=== PATIENT | female | born 1950 | race Caucasian/White ===

== ENCOUNTER → 2018-01-27 | Outpatient (CLI) | payer MEDICARE ==
[~2018-01-27] MED LIST: ATOR20TA9 PO; EMTR1TAB8 PO; EZET10TA18 PO; LEVO100T5 PO; LISI5TAB7 PO; METO25TA35 PO; PANT40TA5 PO; RALT400T PO
[2018-01-27 12:54] LABS: BASOPHILS # (AUTO) 0.06 x10^3/uL (0-0.1); BASOPHILS % (AUTO) 1 % (0-1); EOSINOPHILS # (AUTO) 0.19 x10^3/uL (0-0.4); EOSINOPHILS % (AUTO) 3 % (1-7); LYMPHOCYTES # (AUTO) 2.47 x10^3/uL (1-3.4); LYMPHOCYTES % (AUTO) 33 % (22-44); MD NO; MEAN CORPUSCULAR HEMOGLOBIN 29.7 pg (27.0-34.8); MEAN CORPUSCULAR HGB CONC 33.8 g/dL (32.4-35.8); MEAN CORPUSCULAR VOLUME 87.8 fL (80-100); MEAN PLATELET VOLUME 9.2 fL (7.4-10.4); MONOCYTES % (AUTO) 8 % (2-9); NEUTROPHILS # (AUTO) 4.28 x10^3/uL (1.8-6.8); NEUTROPHILS % (AUTO) 56 % (42-75); PLATELET COUNT 249 x10^3/uL (130-400); RED BLOOD COUNT 5.34 x10^6/uL (3.82-5.3); RED CELL DISTRIBUTION WIDTH 17.6 % (9.6-15.2)
[2018-01-27 13:03] LABS: ALBUMIN 3.9 g/dL (3.4-5.0); ANION GAP 7 mmol/L (5-15); CALCIUM 9.7 mg/dL (8.5-10.1); CHLORIDE 109 mmol/L (98-107)
[2018-01-27 13:07] LABS: ALANINE AMINOTRANSFERASE 58 U/L (12-78); ALKALINE PHOSPHATASE 126 U/L (45-117); BILIRUBIN,TOTAL 0.9 mg/dL (0.2-1.0); CREATININE 0.95 mg/dL (0.55-1.02); TOTAL PROTEIN 7.7 g/dL (6.4-8.2)
== END | disposition home or self-care (01) ==
LOC: STAR 11:38
PROVIDERS: ATTEND Surgery
DX: Z01.818 Encounter for other preprocedural examination (principal); R94.31 Abnormal electrocardiogram [ECG] [EKG]
CPT/HCPCS: 36415; 80053; 85025; 93005

== ENCOUNTER 2018-02-05 08:17 | Day surgery (SDC) | payer MEDICARE ==
[~2018-02-05] VITALS: Ht 142.2 cm; Wt 50.2 kg
[~2018-02-05 08:17] MED LIST changes: +BUPIVACAINE/PF 0.5% ONE
[2018-02-05] MEDS ORDERED: LACTATED RINGERS 1,000 ML IV SCH (08:46)
[2018-02-05 08:50] VITALS: BP 169/88
[2018-02-05] MEDS ORDERED: MIDAZOLAM 1 MG/ML, 2ML ONE (09:24)
[2018-02-05] MEDS ORDERED: FENTANYL PF 250 MCG/5ML ONE (09:24)
[2018-02-05] MEDS ORDERED: GLYCOPYRROLATE 0.2MG/1ML, 5ML ONE (10:20)
[2018-02-05] MEDS ORDERED: CEFAZOLIN 1,000 MG ONE (10:20)
[2018-02-05] MEDS ORDERED: PROPOFOL 10 MG/ML, 20ML ONE (10:20)
[2018-02-05] MEDS ORDERED: ROCURONIUM 10MG/ML,5ML ONE (10:20)
[2018-02-05] MEDS ORDERED: ONDANSETRON 2MG/ML, 2ML ONE (10:20)
[2018-02-05] MEDS ORDERED: DEXAMETHASONE 4 MG/ML, 1ML ONE (10:20)
[2018-02-05] MEDS ORDERED: NEOSTIGMINE 1 MG/ML, 10ML ONE (10:20)
[2018-02-05] MEDS ORDERED: SUCCINYLCHOLINE 20 MG/ML, 10ML ONE (10:20)
[2018-02-05] MEDS ORDERED: METOCLOPRAMIDE 5 MG/ML, 2ML IV PRN (11:00)
[2018-02-05] MEDS ORDERED: KETOROLAC 30 MG/1 ML IV PRN (11:00)
[2018-02-05] MEDS ORDERED: ONDANSETRON 2MG/ML, 2ML IVPush PRN (11:00)
[2018-02-05] MEDS ORDERED: OXYcodone 5 MG/5 ML ORAL.SOL UDC PO PRN (11:00)
[2018-02-05] MEDS ORDERED: MEPERIDINE/PF 25MG/0.5ML IVPush PRN (11:00)
[2018-02-05] MEDS ORDERED: hydrALAzine 20 MG/ML, 1ML IV PRN (11:00)
[2018-02-05] MEDS ORDERED: ALBUTEROL SULFATE 2.5 MG/3 ML NPPB PRN (11:00)
[2018-02-05] MEDS ORDERED: PROMETHAZINE 25 MG/ML, 1ML IV PRN (11:00)
[2018-02-05] MEDS ORDERED: HYDROmorphone 1 MG/ML, 1ML IV PRN (11:00)
[2018-02-05] MEDS ORDERED: BUPIVACAINE/PF 0.5% INJ ONE (11:03)
[2018-02-05] MEDS ORDERED: OXYcodone 5 MG/5 ML ORAL.SOL UDC ONE (12:01)
[2018-02-05] MEDS ORDERED: FENTANYL PF 100 MCG/2ML ONE (12:01)
[2018-02-05] MEDS ORDERED: LABETALOL 5MG/ML, 20ML ONE (12:02)
[2018-02-05] MEDS: FENTANYL PF 100 MCG/2ML IV PRN ×2 (12:03→12:29)
[2018-02-05] MEDS: LABETALOL 5MG/ML, 20ML IV PRN ×3 (12:04→12:48)
[2018-02-05] MEDS ORDERED: OXYcodone/APAP 5/325MG TABLET ONE (15:53)
[2018-02-05] MEDS ORDERED: OXYcodone/APAP 5/325MG TABLET PO PRN (16:00)
== END 2018-02-05 17:00 | disposition home or self-care (01) ==
LOC: OUT 08:17
PROVIDERS: ATTEND Surgery
DX: K43.9 Ventral hernia without obstruction or gangrene (principal); K43.2 Incisional hernia without obstruction or gangrene; B20 Human immunodeficiency virus [HIV] disease; E78.00 Pure hypercholesterolemia, unspecified; I10 Essential (primary) hypertension; I25.10 Atherosclerotic heart disease of native coronary artery without angina pectoris; E03.9 Hypothyroidism, unspecified; Z79.82 Long term (current) use of aspirin; Z98.890 Other specified postprocedural states; Z72.89 Other problems related to lifestyle; Z88.8 Allergy status to other drugs, medicaments and biological substances
CPT/HCPCS: 49654; 88302; C1781; J0330; J0690; J1100; J2250; J2405; J2704; J2710; J3010; J3490